=== PATIENT | male | born 1980 | race Caucasian/White ===

== ENCOUNTER 2021-11-04 23:55 | Emergency (ER) | payer OTHER, SELFPAY ==
[2021-11-05 00:08] VITALS: BP 161/107; PULSE 74; RESP 18; TEMP 37.2; O2SAT 100; BMI 30.5
--- NOTE | 2021-11-05 00:14 | DI.RAD.S_ITS ---
PROCEDURE: XR FOOT LT MIN 3V INDICATIONS: Left lateral foot pain TECHNIQUE: 3 views of the foot were acquired. COMPARISON: None. FINDINGS: Bones: No fractures or dislocations. No suspicious bony lesions. Soft tissues: No tibiotalar joint effusion. Achilles tendon appears normal. IMPRESSION: 1. No fracture or dislocation. Dictated by: Bola Auguste M.D. on 11/05/2021 at 1:36 Approved by: Bola Auguste M.D. on 11/05/2021 at 1:36
--- NOTE | 2021-11-05 01:50 | ED_ITS ---
HPI - Extremity Problem General Chief complaint: Extremity Problem,Nontraumatic Stated complaint: left foot/swollen/painful x2 days Time Seen by Provider: 11/05/21 00:03 Source: patient Mode of arrival: Ambulatory History of Present Illness HPI Narrative: 41-year-old male nonsmoker with noncontributory medical history presents with his in the chief complaint of a painful left lateral foot for least the past few days. He states he denies any memorable injury or overuse and denies any new foot wear. He 1st noticed the pain in his lateral foot when on a trip in [facility]. Denies any obvious swelling, redness or other findings. He states it is a very sharp and stabbing pain that is worse with ambulation seems to improve with rest. Denies any history of the same. He denies any knee, hip or back pain. He has no systemic complaints such as fever or chills. He denies fast pain or shortness of breath, nausea, vomiting, abdominal pain or other complaints. He has taken Motrin 800 mg twice little to minimal relief Related Data Allergies Allergy/AdvReac Type Severity Reaction Status Date / Time No Known Drug Allergies Allergy Verified 11/05/21 00:08 Review of Systems Review of Systems Narrative: GENERAL: Denies chills, fatigue, malaise, fever, sweats. HEENT: Denies sinus pain, ear pain, sore throat, difficulty swallowing, dizziness. RESPIRATORY: Denies dyspnea, cough, wheezing, hemoptysis, sputum. CARDIOVASCULAR: Denies chest pain, palpitations, orthopnea, edema, GASTROINTESTINAL: Denies nausea, vomiting, abdominal pain, diarrhea, constipation, melena. : Denies dysuria, frequency, incontinence, hematuria, urinary retention. MUSCULOSKELETAL: see HPI SKIN: Denies rash, skin lesions, or other NEUROLOGIC: Denies weakness, headache, numbness, change in speech, confusion, seizures, incoordination. PSYCHIATRIC: No concerning psychosocial issues. 12 point review of systems is negative except for those stated above Patient History Medical History (Updated 11/05/21 @ 02:43 by Alli Ivey DO) No significant past medical history Umbilical hernia Family History Father Hypertension Grandmother Stroke Mother Cancer Hypertension Social History marital status: Smoking Status: Never smoker alcohol intake: current substance use type: does not use additional social history: Works in the construction industry as associate quality engineer Smoking Status: Never smoker alcohol intake frequency: 0-2 drinks per day Substance Use Type: does not use Exam Narrative Exam Narrative: GEN: AOx3 and in mild distress EYES: Pupils are equal, round, and reactive to light and accommodation. Extraoccular muscles are intact bilaterally. There is no subconjunctival hemorrhage or exudate. CHEST: Lungs are clear to auscultation bilaterally and free of wheezes, rales, or rhonchi. Heart rate is regular rhythm, there are no murmurs, clicks, rubs, or gallops. There is no chest wall tenderness. ABD: Abdomen is soft and nontender. There is no guarding or rebound. Bowel sounds are normal in all 4 quadrants. There is no mass or organomegaly. EXT: Full painless ROM of all extremities with no loss of sensation or strength. no obvious deformity, swelling, redness to left foot, warm and dry with sensation and cap refill intact SKIN: Warm, pink, and dry. No erythema or rash Initial Vital Signs Initial Vital Signs: Vital Signs Temperature 99.0 F 11/05/21 00:08 Pulse Rate 74 11/05/21 00:08 Respiratory Rate 18 11/05/21 00:08 Blood Pressure 161/107 H 11/05/21 00:08 Pulse Oximetry 100 11/05/21 00:08 Course Orders Ordered: Discontinued Medications Hydrocodone Bitart/Acetaminophen (Hydrocodone/Acet 5/325 Prepack) 1 bottle MISC SEEINSTR ONE Stop: 11/05/21 02:37 Last Admin: 11/05/21 02:49 Dose: 1 bottle Documented by: NELDA Vital Signs Vital signs: Vital Signs - 8 hr 11/05/21 00:08 Temperature 99.0 F Pulse Rate 74 Respiratory Rate 18 Blood Pressure 161/107 H Pulse Oximetry 100 MDM - Extremity (Nontraumatic) Imaging Data Extremity x-ray #1: Radiologist's Impression: [address] [address] XRay Report Signed Patient: Kevin Lewis MR#: [id number] : 1980 Acct:[id number] Age/Sex: 41 / M Date of Service: 11/05/21 Loc: ED Accession Number: [id number] ?? Procedure: XR foot LT min 3V Ordering Provider: Alli Ivey D.O. PROCEDURE:? XR FOOT LT MIN 3V ? INDICATIONS:? Left lateral foot pain ? TECHNIQUE:? 3 views of the foot were acquired.? ? COMPARISON:? None. ? FINDINGS:? ? Bones:? No fractures or dislocations.? No suspicious bony lesions.? ? Soft tissues:? No tibiotalar joint effusion.? Achilles tendon appears normal.? ? IMPRESSION:? ? 1. No fracture or dislocation. ? ? Dictated by: Bola Auguste M.D. on 11/05/2021 at 1:36 ? ? Approved by: Bola Auguste M.D. on 11/05/2021 at 1:36 ? MDM Narrative Medical decision making narrative: patient presents with left foot pain in the absence of injury. Multiple diagnoses considered including gout, infection, DVT but these etiologies considered less likely as there is no redness, warmth or swelling, no obvious external manifestation of disease or injury. X-ray reassuring and no evidence of fracture or dislocation. Description of pain raises the question of the possibility of osei ill tendinitis, plantar fasciitis or other similar inflammatory condition. Patient encouraged to wear foot were with significant support, limit activity, elevate extremity when home, take anti-inflammatories on a schedule for few days and follow-up with primary care provider. Return precautions discussed and questions answered to his apparent satisfaction Discharge Plan Departure Patient Disposition: Home Clinical Impression: Foot pain, left Instructions: DI for Foot Pain Activity Restrictions/Additional Instructions: *You have been diagnosed with [lateral foot pain. As we discussed her history and physical exam are reassuring, the foot x-ray demonstrates no fracture or dislocation. This type of pain in the absence of injury given be from ligamentous injury such as plantar fasciitis, peroneal tendonitis or other inflammatory conditions. Your exam would Suggest that other diagnoses such as infection, gout or clot are much less likely. *What to do: *Please continue to take your regular medications as directed. [ ] New medication prescriptions sent to your pharmacy: [ ] [ ] New medication written as a paper prescription [x ] No new medications given *Please follow up with your primary care provider in 2-3 days, call for an appointment. Let them know you were seen in the Emergency Department and that we ask that you be seen in follow up. We will electronically transmit a record of today's note if your PCP is in our system *As we discussed use of foot wear with arch support can be helpful as can routine use of antiinflammatories such as advil or naprosyn. *If you do not have a primary care provider please contact the [facility] Resource line at [phone]. They will ask some questions about your medical history and help get you set up with a doctor in the community. *Return to Emergency Department if you should have any new, worsening or concerning symptoms, such as [fever greater than 101 F, shaking chills, worsening pain, persistent vomiting or other bothersome symptoms] Referrals: Violetta Dixon MD [Primary Care Provider] -
[2021-11-05] MEDS: HYDROCODONE/ACET 5/325 PREPACK 1 BOTTLE MISC (02:49)
[2021-11-05 02:52] VITALS: BP 148/94; PULSE 68; RESP 18; O2SAT 97
== END 2021-11-05 02:53 | disposition home or self-care (01) ==
PROVIDERS: Emergency Provider Emergency Medicine; PCP Family Medicine
DX: M79.672 Pain in left foot (principal)
CPT/HCPCS: 73630; 99281; 99283